=== PATIENT | female | born 1975 | race African-American/Black ===

== ENCOUNTER 2019-07-02 00:12 | Emergency (ER) | payer OTHER ==
[~2019-07-02] VITALS: Ht 165.1 cm; Wt 68.0 kg
[~2019-07-02 00:12] MED LIST: AUGMENTIN 875-1 EACH PO; CLARINEX-D 121 EACH PO; FLONASE 0.05%50 MCG NASAL; NORCO 5-325 TA1 EACH PO; PAXIL10 MG PO; TRIAMTERENE-HC1 EAC1 PO; ZYRTEC 10 MG TA10 M1 PO
[2019-07-02] MEDS ORDERED: [UNRECOGNIZED DRUG - REMARK] PO (00:23)
[2019-07-02 01:00] LABS: HEMATOCRIT 35.7 % (37.0-47.0); HEMOGLOBIN 11.7 gm/dL (12.0-15.0); MCH 29.3 pg (26.0-34.0); MCHC 32.7 g/dL (28.0-37.0); MCV 89.4 fL (80.0-100.0); RBC 3.99 mil/uL (4.20-5.00); RDW 14.8 % (10.5-14.5); URINE BILIRUBIN NEGATIVE (Negative); URINE BLOOD 3+ (Negative); URINE CLARITY CLOUDY; URINE COLOR YELLOW; URINE GLUCOSE-RANDOM* NEGATIVE (Negative); URINE KETONES NEGATIVE (Negative); URINE PROTEIN (DIPSTICK) 2+ (Negative); URINE SPECIFIC GRAVITY 1.015 (1.005-1.035); URINE UROBILINOGEN 0.2 E.U./dl (0.2-1.0); WBC 12.2 thou/uL (4.0-11.0)
[2019-07-02 01:01] LABS: URINE LEUKOCYTES-REFLEX 3+ (Negative); URINE NITRITE-REFLEX POSITIVE (Negative)
[2019-07-02 01:03] LABS: CALCIUM 9.8 mg/dL (8.5-10.1); CREATININE 0.8 mg/dL (0.6-1.0); POTASSIUM 3.3 mmol/L (3.5-5.1)
[2019-07-02 01:05] LABS: CASTS None Seen /LPF (None Seen); MUCUS None Seen strn/LPF (None Seen); SQUAMOUS None Seen /LPF (0-3)
[2019-07-02 01:06] LABS: BACTERIA-REFLEX >30 Many /HPF (None Seen); CRYSTALS None Seen /LPF (None Seen); URINE RBC >20 Many /HPF (0-2); URINE WBC-REFLEX >25 Many /HPF (0-5); WBC CLUMPS Moderate (None Seen)
[2019-07-02 01:09] LABS: ALBUMIN 4.3 g/dL (3.4-5.0); TOTAL BILIRUBIN 0.5 mg/dL (<0.1-1.0); TOTAL PROTEIN 8.2 g/dL (6.4-8.2)
[2019-07-02] MEDS ORDERED: KEFLEX500 M1 PO (02:23)
[2019-07-02] MEDS ORDERED: IBUPROFEN 600600 M1 PO (02:23)
[2019-07-02 03:02] VITALS: BP 153/93
== END 2019-07-02 03:20 | disposition home or self-care (01) ==
LOC: ER 00:12
PROVIDERS: Emergency Medicine
DX: N12 Tubulo-interstitial nephritis, not specified as acute or chronic (principal); I10 Essential (primary) hypertension; F17.210 Nicotine dependence, cigarettes, uncomplicated; Z79.899 Other long term (current) drug therapy